=== PATIENT | male | born 1955 | race Caucasian/White ===

== ENCOUNTER 2025-04-05 00:13 | Emergency (ER) | payer MEDICARE, OTHER ==
[~2025-04-05] VITALS: Ht 182.9 cm; Wt 90.7 kg
[2025-04-05 00:31] VITALS: TEMP 98.7
[2025-04-05] MEDS ORDERED: DICYCLOMINE HCL 10 MG CAPSULE PO ONE (00:39)
[2025-04-05] MEDS ORDERED: PANTOPRAZOLE 40 MG TABLET.DR PO ONE (00:39)
[2025-04-05] MEDS ORDERED: ONDANSETRON 4 MG TAB.RAPDIS ONE (00:39)
[2025-04-05] MEDS ORDERED: ONDA4TAB5 PO (00:41)
[2025-04-05] MEDS: PANTOPRAZOLE 40 MG TABLET.DR PO ONE (00:42)
[2025-04-05] MEDS: DICYCLOMINE HCL 10 MG CAPSULE PO ONE (00:42)
[2025-04-05] MEDS: ONDANSETRON 4 MG TAB.RAPDIS PO ONE (00:42)
[2025-04-05 02:20] VITALS: BP 146/79; O2SAT 99
== END 2025-04-05 02:20 | disposition home or self-care (01) ==
LOC: ER 00:17
DX: R11.2 Nausea with vomiting, unspecified (principal); Z79.899 Other long term (current) drug therapy
CPT/HCPCS: 99284; 82962; Q0162